=== PATIENT | female | born 1950 | race African-American/Black ===

== ENCOUNTER → 2016-12-15 | Outpatient (CLI) | payer OTHER ==
--- NOTE | 2016-12-15 10:31 | KCIC ---
BRAIN W/O CONTRAST Indication: Reason For Study Reason: SLURRED SPEECH / Spl. Instructions: / History: Drooling, slurred speech, left sided facial weakness. Sx since Sep 2015. TECHNIQUE: Axial diffusion weighted imaging was obtained. Additional sagittal T1, axial T1, axial FLAIR, and axial T2 weighted imaging of the brain was also performed. FINDINGS: There are scattered foci of FLAIR signal hyperintensity in the periventricular white matter which are nonspecific but most likely related to sequelae of chronic small vessel ischemic disease. No evidence of acute intracranial hemorrhage. No restricted diffusion to indicate acute infarct. No extra-axial fluid collections. No midline shift or mass effect. Ventricular size is appropriate. Midline structures have a normal anatomic configuration. Basal cisterns are patent. Arterial flow voids at the skull base and major dural venous sinuses are maintained. Globes and orbits are unremarkable. Paranasal sinuses and mastoid air cells are clear. IMPRESSION: No acute or recent infarct. No acute intracranial abnormality. Electronically signed by: Nathan Rowland (Dec 15, 2016 10:30:05)
== END | disposition home or self-care (01) ==
LOC: KCIC MRI 09:22
PROVIDERS: ATTEND Psychiatry & Neurology Neurology with Special Qualifications in Child Neurology
DX: R47.81 Slurred speech (principal)
CPT/HCPCS: 70551

== ENCOUNTER → 2017-07-25 | Outpatient (CLI) | payer MEDICARE, OTHER ==
[~2017-07-25] MED LIST: BARIUM SULFATE 40% (APPLE) 148 GM PWD. PO ONE
--- NOTE | 2017-07-25 10:25 | RAD ---
Video dysphasia study, 07/25/2017: History: Dysphasia The swallowing mechanism was examined fluoroscopically in the lateral projection while the patient ingested a variety of food materials mixed with barium. 2.8 minutes of fluoroscopy time was utilized. One video loop was recorded by a member of the speech Department. Oral control of the barium materials was diminished with decreased tongue movement. Piecemeal swallowing was noted with the thicker materials and barium coated solids. Once initiated the pharyngeal peristalsis was good. There was normal passage of the majority of the barium bolus through the cervical esophagus. Intermittent laryngeal penetration was observed with the thin liquids. There was one episode of aretha silent aspiration of a small amount of the liquid barium. The laryngeal penetration abated when the chin tuck maneuver was utilized. There was no significant laryngeal penetration or aspiration with the thicker materials or the barium coated solids. IMPRESSION: Mild intermittent laryngeal penetration and aretha aspiration of the thin liquids, which abated when the chin tuck maneuver was utilized.
== END | disposition home or self-care (01) ==
LOC: RAD 09:25
PROVIDERS: ATTEND Internal Medicine Gastroenterology
DX: R13.10 Dysphagia, unspecified (principal); R47.02 Dysphasia
CPT/HCPCS: 74230; 92526; 92611

== ENCOUNTER → 2017-08-09 | Day surgery (SDC) | payer OTHER ==
[~2017-08-09] MED LIST changes: +ALLO300T PO; -BARIUM SULFATE 40% (APPLE) 148 GM PWD. PO ONE; +HYDR-2869 PO; +HYDROmorphone 2 MG/ML VIAL IV PRN; +IV RINGERS,LACTATED 1000ML 1,000 ML IV SCH; +LIDOCAINE 1% PF 2 ML VIAL. ID PRN; +MORPHINE SULFATE 2 MG/ML DISP.SYRIN. IV PRN; +ONDANSETRON PF 4 MG/2 ML VIAL. IV PRN; +PROCHLORPERAZINE 10 MG/2 ML VIAL. IV PRN; +PROPOFOL 20 ML IV ONE; +fentaNYL PF VIAL 100 MCG/2 ML VIAL IV PRN
[2017-08-09 14:20] VITALS: BP 159/79
--- NOTE | 2017-08-09 23:58 | CONS ---
DATE OF CONSULTATION: 08/09/2017 REFERRING PHYSICIAN: Brandon Diaz MD REASON FOR CONSULTATION: Dysphagia. HISTORY OF PRESENT ILLNESS: A 67-year-old female with past medical history significant for hypertension, history of dysphagia as well as gout is seen with increasing discomfort and dysphagia with solids mainly in the upper esophagus and occasionally with liquids. Weight and appetite have been stable. ____ noted. With continued issues, she requests additional evaluation. Previous speech path study was unrevealing. PAST MEDICAL HISTORY: Gouty arthritis and hypertension. ALLERGIES: None. MEDICATIONS: Include allopurinol and hydralazine. FAMILY AND SOCIAL HISTORY: She does not drink or smoke. Family history is noncontributory. PAST SURGICAL HISTORY: Status post hysterectomy. REVIEW OF SYSTEMS: Per records. PHYSICAL EXAMINATION: GENERAL: Reveals a well-nourished, well-developed female who is alert, cooperative, in no acute distress. VITAL SIGNS: Temperature is 97.9, pulse 79 and respiratory rate is 18. HEENT: Normocephalic and atraumatic. Pupils and extraocular muscles are not tested. Sclerae anicteric. NECK: Supple. LUNGS: Clear. CARDIOVASCULAR: Reveals an S1, S2 without S3, S4 or appreciable murmur. ABDOMEN: Reveals a soft abdomen, normal bowel sounds without appreciable hepatosplenomegaly. EXTREMITIES: Reveals no cyanosis, clubbing or edema. IMPRESSION: Dysphagia most likely is multifactorial in etiology. Presbyesophagus, oropharyngeal dysphagia, Jenkins's, malignancy, achalasia, eosinophilic esophagitis and/or Schatzki's ring certainly are differential; therefore, recommend upper endoscopy with possible biopsy and dilatation. Risks and benefits of the procedure have been were discussed with the patient including risk of perforation with potential dilatation and/or biopsy with no guarantees that the potential dilatation will resolve her symptoms. YORDAN HERNANDEZ MD DR: BERTO/silvestre JOB#: [id number] / [id number]
== END | disposition home or self-care (01) ==
LOC: ENDOS 12:57
PROVIDERS: ATTEND Internal Medicine Gastroenterology
DX: K22.2 Esophageal obstruction (principal); K29.50 Unspecified chronic gastritis without bleeding; I10 Essential (primary) hypertension; Z86.73 Personal history of transient ischemic attack (TIA), and cerebral infarction without residual deficits; Z98.890 Other specified postprocedural states; Z87.39 Personal history of other diseases of the musculoskeletal system and connective tissue
CPT/HCPCS: 43235; 43450; J2704

== ENCOUNTER → 2017-08-28 | Outpatient (CLI) | payer OTHER ==
[2017-08-09 14:20] VITALS: BP 159/79
[~2017-08-28] MED LIST changes: -HYDROmorphone 2 MG/ML VIAL IV PRN; -IV RINGERS,LACTATED 1000ML 1,000 ML IV SCH; -LIDOCAINE 1% PF 2 ML VIAL. ID PRN; -MORPHINE SULFATE 2 MG/ML DISP.SYRIN. IV PRN; -ONDANSETRON PF 4 MG/2 ML VIAL. IV PRN; -PROCHLORPERAZINE 10 MG/2 ML VIAL. IV PRN; -PROPOFOL 20 ML IV ONE; -fentaNYL PF VIAL 100 MCG/2 ML VIAL IV PRN
--- NOTE | 2017-08-28 11:55 | EKG ---
[facility] [address] [place] [address] Test Date: 2017-08-28 Test Time: 11:52:41 Pat Name: ROBERT KOWALSKI Department: Room: Gender: F Coat Examiner: ROSANA : 1950 Requested By: LAY PLUMMER Order Number: [id number] Reading MD: Measurements Intervals [place] Rate: 68 P: 54 AR: 132 QRS: -34 QRSD: 80 T: 73 QT: 382 QTc: 411 Interpretive Statements SINUS RHYTHM ABNORMAL LEFT AXIS DEVIATION LEFT ANTERIOR FASCICULAR BLOCK QRS(T) CONTOUR ABNORMALITY CONSIDER ANTEROSEPTAL MYOCARDIAL DAMAGE T ABNORMALITY IN HIGH LATERAL LEADS ABNORMAL ECG RI6.01 No previous ECG available for comparison
--- NOTE | 2017-08-28 12:24 | RAD ---
Indication: Congestion and weakness. Time of exam 12:09 PM No prior studies are available for comparison. FINDINGS: The heart size is normal. The lungs are clear. No pleural effusion or pneumothorax is identified. The pulmonary vascularity is normal. IMPRESSION: No acute abnormality detected.
== END | disposition home or self-care (01) ==
LOC: RAD 11:19
PROVIDERS: ATTEND Psychiatry & Neurology Neurology
DX: R53.1 Weakness (principal); R09.89 Other specified symptoms and signs involving the circulatory and respiratory systems
CPT/HCPCS: 71020; 93005

== ENCOUNTER → 2017-09-26 | Outpatient (CLI) | payer OTHER ==
[2017-09-26] MEDS: GADOBUTROL 7.5 MMOL/7.5 ML VIAL IV (12:22)
== END | disposition home or self-care (01) ==
LOC: KCIC MRI 10:40
DX: M47.892 Other spondylosis, cervical region (principal); M41.84 Other forms of scoliosis, thoracic region; M27.40 Unspecified cyst of jaw; M62.58 Muscle wasting and atrophy, not elsewhere classified, other site
CPT/HCPCS: 70543; A9585

== ENCOUNTER → 2017-10-11 | Outpatient (CLI) | payer OTHER ==
[~2017-10-11] MED LIST changes: -ALLO300T PO; -HYDR-2869 PO; +REGADENOSON 0.4 MG/5 ML DISP.SYRIN. IV
== END | disposition home or self-care (01) ==
LOC: ECHO 07:35
DX: I10 Essential (primary) hypertension (principal)
CPT/HCPCS: 78452; 93017; 93306; 96374; 96375; 96376; A9500; J2785

== ENCOUNTER → 2017-11-16 | Outpatient (CLI) | payer OTHER | END | disposition home or self-care (01) | LOC: CT 10:10 | DX: R91.1 Solitary pulmonary nodule (principal); R91.8 Other nonspecific abnormal finding of lung field; R63.4 Abnormal weight loss | CPT/HCPCS: 71250 ==